=== PATIENT | male | born 1955 | race Caucasian/White ===

== ENCOUNTER → 2017-09-29 | Day surgery (SDC) | payer BC ==
[~2017-09-29] VITALS: Ht 167.6 cm; Wt 113.6 kg
[~2017-09-29] MED LIST: ATOR10TA82 PO; ATV/1 PO; EPP3/2 IM; INSDGIPEN SC; LIDOCAINE HCL 2% 2 ML VIAL (20MG/ML) ONE; LISI-461 PO; MECL1TAB42 PO; METF1TAB53 PO; MULT-506 PO; NVLGI/PEN SQ; ONDANSETRON INJ 2 MG/ML 2 ML VIAL IV PRN; PRLSR20 PO; PROPOFOL IV EMULSION 10 MG/ML 20 ML VIAL ONE
[2017-09-29 09:11] VITALS: Ht 167.6 cm; Wt 113.6 kg
--- NOTE | 2017-09-29 09:50 | Endo History and Physical ---
History & Physical Date of Service: September 29, 2017. Chief Complaint: screening Referring Physician: Yo Pastrana PA-C History of Present Illness The patient presents for colon cancer screening. He has no specific complaints or issues. There is no family history of colorectal cancer. His last colonoscopy was 10 years ago without any colon polyps. Past Surgical History Hx Cardiac Surgery: No Hx Internal Defibrillator: No Hx Pacemaker: No Hx Abdominal Surgery: Yes (gallbladder) Hx of Implantable Prosthesis: No Hx Post-Op Nausea and Vomiting: No Hx Cancer Surgery: No Hx Thoracic Surgery: No Hx Orthopedic: Yes (bilateral total knee replacement,left rotator cuff) Hx Urinary Tract Surgery: Yes (vasectomy) Family History None Social History Smoking Status: Former Smoker Hx Substance Use: Yes (as prescribed) Hx Alcohol Use: Yes (occassional) Allergies Uncoded Allergies: BEE STINGS (Allergy, Severe, anaphylaxis, 09/29/17) Current Medications Reported Home Medications Medications Dose Route/Sig Max Daily Dose Days Date Category Dose Instructions Epipen (Epinephrine) 0.3 Mg/0.3 Ml Inj 0.3 Mg IM UD 09/29/17 Reported Novolog Flexpen (Insulin Aspart) 100 Units/Ml Inj 10 SQ DAILYBB 09/29/17 Reported 12 units before lunch,14 units before supper Lantus Solostar (Insulin Glargine) 100 Unit/Ml Inj 50 SC QPM 09/29/17 Reported Meclizine Hcl 25 Mg Tab 1 Tab PO TID 30 09/29/17 Reported Ativan (Lorazepam) 1 Mg Tab 1 Mg PO TID 09/29/17 Reported Multivitamin (Multivitamins) Tab 1 Tab PO DAILY 09/29/17 Reported Zestril (Lisinopril) 10 Mg Tab 10 Mg PO DAILY 09/29/17 Reported Lipitor (Atorvastatin Calcium) 10 Mg Tab 1 Tab PO DAILY 30 09/29/17 Reported Prilosec (Omeprazole) 20 Mg Capcr 20 Mg PO BID 09/29/17 Reported Glucophage Ext Rel (Metformin Hcl) 1,000 Mg Tab 1,000 Mg PO BID 09/29/17 Reported Vital Signs Weight (Kilograms): 113.64 Height (Feet): 5 Height (Inches): 6 Date Time Temp Pulse Resp B/P (MAP) Pulse Ox O2 Delivery O2 Flow Rate FiO2 09/29/17 09:30 36.9 88 20 169/93 (118) 94 Room Air Physical Exam General Appearance: no apparent distress Respiratory/Chest: Auscultation: deminished air movement Cardiovascular: Heart Auscultation: RRR Abdomen: Inspection & Palpation: soft Assessment and Plan Colonoscopy for evaluation of colonic polyps. We discussed risks to include bleeding, infection, perforation, pain, aspiration and missed colonic polyps.
--- NOTE | 2017-09-29 10:09 | Discharge Instructions ---
Endoscopy Patient Instructions Date / Procedure(s) Performed September 29, 2017. Colonoscopy Allergy Information Uncoded Allergies: BEE STINGS (Allergy, Severe, anaphylaxis, 09/29/17) Discharge Date / Findings September 29, 2017. Internal hemorrhoids 1 colon polyps diverticulosis of the left colon Medication Instructions Reported Home Medications Medications Dose Route/Sig Max Daily Dose Days Date Category Dose Instructions Epipen (Epinephrine) 0.3 Mg/0.3 Ml Inj 0.3 Mg IM UD 09/29/17 Reported Novolog Flexpen (Insulin Aspart) 100 Units/Ml Inj 10 SQ DAILYBB 09/29/17 Reported 12 units before lunch,14 units before supper Lantus Solostar (Insulin Glargine) 100 Unit/Ml Inj 50 SC QPM 09/29/17 Reported Meclizine Hcl 25 Mg Tab 1 Tab PO TID 30 09/29/17 Reported Ativan (Lorazepam) 1 Mg Tab 1 Mg PO TID 09/29/17 Reported Multivitamin (Multivitamins) Tab 1 Tab PO DAILY 09/29/17 Reported Zestril (Lisinopril) 10 Mg Tab 10 Mg PO DAILY 09/29/17 Reported Lipitor (Atorvastatin Calcium) 10 Mg Tab 1 Tab PO DAILY 30 09/29/17 Reported Prilosec (Omeprazole) 20 Mg Capcr 20 Mg PO BID 09/29/17 Reported Glucophage Ext Rel (Metformin Hcl) 1,000 Mg Tab 1,000 Mg PO BID 09/29/17 Reported Provider Instructions Activity Restrictions - No exercising or heavy lifting for 24 hours. - Do not drink alcohol the day of the procedure. - Do not drive a car or operate machinery until the day after the procedure. - Do not make any important decisions or sign important papers in 24 hours after the procedure. Following Day: - Return to full activity which may include returning to work/school. Diet Start your diet with liquids and light foods (jello, soup, juice, toast). Then eat your usual diet if not nauseated. Treatment For Common After Affects For mild abdominal pain, bloating, or excessive gas: - Rest - Eat lightly - Lie on right side Follow-Up Information Follow-up with Yo Pastrana PA-C as scheduled Repeat colonoscopy in 5 years Anesthesia Information What You Should Know You have had a procedure that required some medicine to reduce anxiety and discomfort. This treatment is called moderate sedation. After receiving the treatment, you may be sleepy, but you will be able to breathe on your own. The effects of the treatment may last for several hours. Follow these instructions along with Activity/Diet recommendations noted above: * Do NOT do anything where dizziness or clumsiness would be dangerous. * Rest quietly at home today, then you can be up and about tomorrow. * Have a responsible person stay with you the rest of today. * You may have had an I.V. today. If so, you may take the dressing off later today. Recommendations Call your doctor if: * Trouble breathing * Continuous vomiting for more than 24 hours * Temperature above 101 degrees * Severe abdominal pain or bloating * Pain not relieved by pain medicine ordered * There is increased drainage or redness from any incision * A large amount of rectal bleeding greater than 2-3 tablespoons. (If you had a polyp/s removed or have hemorrhoids, a small amount of blood - from the rectum is to be expected.) * You have any unanswered questions or concerns. IN THE EVENT OF A SERIOUS EMERGENCY, GO TO THE NEAREST EMERGENCY ROOM Your discharge instructions were prepared by provider Uvaldo Welch. Patient Instructions Signature Page [facility] Patient (or Guardian) Signature/Date: I have read and understand the instructions given to me by my caregivers. Caregiver/RN/Doctor Signature/Date: The above-named patient and/or guardian has received patient instructions on this date. + Original Patient Signature Page (only) stays with chart. Please make copy for patient.
--- NOTE | 2017-09-29 10:13 | GI REPORT ---
Patient Name: Mika Villalba Procedure Date: 09/29/2017 9:49 AM Date of : 1955 Admit Type: Outpatient Age: 61 Gender: Male Attending MD: Uvaldo Welch DO Procedure: Colonoscopy Providers: Uvaldo Welch DO Referring MD: Kosta Huston Indications: Screening for colorectal malignant neoplasm Medicines: Monitored Anesthesia Care Complications: No immediate complications. Estimated blood loss: Minimal. Estimated Blood Loss: Estimated blood loss was minimal. Procedure: Pre-Anesthesia Assessment: - Prior to the procedure, a History and Physical was performed, and patient medications, allergies and sensitivities were reviewed. The patient's tolerance of previous anesthesia was reviewed. - The risks and benefits of the procedure and the sedation options and risks were discussed with the patient. All questions were answered and informed consent was obtained. - Patient identification and proposed procedure were verified prior to the procedure by the physician, the nurse and the principal solutions architect. The procedure was verified in the procedure room. - Pre-procedure physical examination revealed no contraindications to sedation. - ASA Grade Assessment: III - A patient with severe systemic disease. - After reviewing the risks and benefits, the patient was deemed in satisfactory condition to undergo the procedure. - The anesthesia plan was to use monitored anesthesia care (MAC). - Immediately prior to administration of medications, the patient was re-assessed for adequacy to receive sedatives. - The heart rate, respiratory rate, oxygen saturations, blood pressure, adequacy of pulmonary ventilation, and response to care were monitored throughout the procedure. - The physical status of the patient was re-assessed after the procedure. After I obtained informed consent, the scope was passed under direct vision. Throughout the procedure, the patient's blood pressure, pulse, and oxygen saturations were monitored continuously. The scope was introduced through the anus and advanced to the terminal ileum. The colonoscopy was performed without difficulty. The patient tolerated the procedure well. The quality of the bowel preparation was adequate to identify polyps 6 mm and larger in size. Findings: The perianal and digital rectal examinations were normal. Pertinent negatives include normal sphincter tone. The terminal ileum appeared normal. A 6 mm polyp was found in the transverse colon. The polyp was sessile. The polyp was removed with a cold snare. Resection and retrieval were complete. Estimated blood loss was minimal. Many small-mouthed diverticula were found in the sigmoid colon and descending colon. Internal hemorrhoids were found during retroflexion. The hemorrhoids were mild. The exam was otherwise without abnormality. Impression: - The examined portion of the ileum was normal. - One 6 mm polyp in the transverse colon, removed with a cold snare. Resected and retrieved. - Mild diverticulosis in the sigmoid colon and in the descending colon. - Internal hemorrhoids. - The examination was otherwise normal. Recommendation: - Discharge patient to home (ambulatory). - Advance diet as tolerated today. - Await pathology results. - Repeat colonoscopy in 5 years for surveillance. Uvaldo Welch D.O. Uvaldo Welch, 09/29/2017 10:13:32 AM This report has been signed electronically. Note Initiated On: 09/29/2017 9:49 AM Number of Addenda: 0 I attest to the content of the Intraoperative Record and orders documented therein, exceptions below {[id number]}
[2017-09-29 10:26] VITALS: BP 123/78; PULSE 85; O2SAT 94
--- NOTE | 2017-09-29 11:03 | Anesthesiology Progress Note ---
Anesthesia Post Op Note Date & Time September 29, 2017 at 11:02 Vital Signs Pain Intensity: 0 Vital Signs Past 12 Hours Date Time Temp Pulse Resp B/P (MAP) Pulse Ox O2 Delivery O2 Flow Rate FiO2 09/29/17 10:26 85 20 123/78 (93) 94 Room Air 09/29/17 10:16 85 20 111/61 (78) 95 Room Air 09/29/17 10:06 87 20 137/66 (89) 93 Room Air 09/29/17 09:30 36.9 88 20 169/93 (118) 94 Room Air Notes Mental Status: alert / awake / arousable, participated in evaluation
== END | disposition home or self-care (01) ==
LOC: C.GI 08:24
PROVIDERS: ATTEND Internal Medicine Gastroenterology
DX: Z12.11 Encounter for screening for malignant neoplasm of colon (principal); K57.30 Diverticulosis of large intestine without perforation or abscess without bleeding; K64.8 Other hemorrhoids; D12.3 Benign neoplasm of transverse colon; E11.9 Type 2 diabetes mellitus without complications; I10 Essential (primary) hypertension; Z87.891 Personal history of nicotine dependence; Z91.030 Bee allergy status; Z79.4 Long term (current) use of insulin; Z79.899 Other long term (current) drug therapy